=== PATIENT | female | born 1980 | race Caucasian/White ===

== ENCOUNTER → 2016-04-20 | Outpatient (CLI) | payer OTHER ==
--- NOTE | 2016-04-20 15:21 | US ---
Ultrasound Pelvis Complete (Transabdominal and Endovaginal) Including Duplex/Doppler Imaging History: IUD removed March 2016. Technique: Transabdominal and endovaginal ultrasound images were obtained. Endovaginal images obtain ed for better evaluation of the uterine myometrium and adnexa. Duplex/Doppler imaging of adnexa. Findings: Uterus measures 9 x 5 x 4 cm. Endometrial thickness is 9 mm. IUD wing identified in the ri ght side of the cervix myometrium measuring 11 mm. No definite uterine leiomyomata. Right ovary measures 2.9 x 2.7 x 1.2 cm. Left ovary measures 2.3 x 1.8 x 1.5 cm. Left ovarian slightl y complex probable corpus luteum cyst measuring 2.3 x 1.8 x 1.5 cm. No significant free fluid in the pelvis. Color Doppler flow to both ovaries without torsion. Impression: 1. IUD wing measuring 11 mm in the cervix right myometrium region. 2. No adnexal masses or ovarian torsion. 3. Probable Left corpus luteum cyst measuring 2.3 x 1.8 x 1.5 cm.
== END ==
LOC: FIMAGING 12:34
PROVIDERS: ATTEND Obstetrics & Gynecology Gynecology
DX: Z97.5 Presence of (intrauterine) contraceptive device (principal)

== ENCOUNTER → 2018-07-03 | Outpatient (CLI) | payer OTHER | LOC: FIMAGING 12:54 | PROVIDERS: ATTEND Obstetrics & Gynecology | DX: O09.511 Supervision of elderly primigravida, first trimester (principal); Z3A.12 12 weeks gestation of pregnancy; N83.201 Unspecified ovarian cyst, right side; N83.202 Unspecified ovarian cyst, left side ==

== ENCOUNTER → 2018-07-31 | Outpatient (CLI) | payer OTHER | LOC: FIMAGING 11:37 | PROVIDERS: ATTEND Obstetrics & Gynecology | DX: O09.512 Supervision of elderly primigravida, second trimester (principal); Z3A.16 16 weeks gestation of pregnancy ==

== ENCOUNTER → 2018-08-28 | Outpatient (CLI) | payer OTHER | LOC: FIMAGING 07:27 | PROVIDERS: ATTEND Obstetrics & Gynecology | DX: O09.512 Supervision of elderly primigravida, second trimester (principal); Z3A.20 20 weeks gestation of pregnancy ==